=== PATIENT | male | born 1985 | race Caucasian/White ===

== ENCOUNTER 2018-06-29 00:50 | Emergency (ER) | payer MEDICAID, SELFPAY ==
[2018-06-29 00:51] VITALS: BP 132/80; PULSE 69; RESP 15; TEMP 36.6; O2SAT 96
--- NOTE | 2018-06-29 01:18 | ED.VISSUMM ---
- ER Visit Summary Date of Service: 06/29/18 Chief Complaint: Dehydrated History of Present Illness: The patient is an indigent 32 M who presents complaining of feeling dehydrated for 1 day. Patient states he has been outside in the heat because he has no home. He has had decreased p.o. intake, with no meal for 1 day. He has been having 1 day of generalized weakness, abdominal pain, and vomiting ?2 today. He denies fever, chest pain, cough or congestion, shortness of breath, diarrhea, or other complaints. He states he is not urinated since this morning. He denies any medical history, including history of diabetes. He denies taking any medications. He uses tobacco. Physical Examination: Vital signs: afebrile, hemodynamically stable, no hypoxia on room air General: well nourished, well developed, in no distress Skin: warm, dry, no rash, no pallor HEENT: normocephalic and atraumatic; PERRL, EOMI, dry mucous membranes Cardiovascular: regular rate and rhythm without murmurs, no peripheral edema, 2+ pulses all distal extremities Respiratory: No increased work of breathing, lungs are clear to auscultation bilaterally, no rales, rhonchi or wheezing Abdominal: Abdomen is soft, mildly tender in bilateral lower quadrants, right greater than left, with normoactive bowel sounds, no guarding or rebound, no rigidity, no masses MSK: Moves all extremities, no deformities, normal strength Neuro: Awake and alert, oriented ?4. No facial droop, sensation and motor function intact and symmetric Test Results: Abnormal Lab Results 06/29/18 06/29/18 06/29/18 01:25 01:25 02:12 WBC 9.6 RBC 4.57 L Hgb 14.8 Hct 43.7 MCV 95.6 H MCH 32.4 H MCHC 33.9 RDW 12.4 RDW Differential 43.2 Plt Count 254 MPV 10.7 Immature Gran % (Auto) 0.100 Neut % (Auto) 47.5 Lymph % (Auto) 36.4 Amador % (Auto) 7.5 Eos % (Auto) 7.9 H Baso % (Auto) 0.6 Absolute Neuts (auto) 4.6 Absolute Lymphs (auto) 3.50 Total Counted Not Reportable Sodium 143 Potassium 3.5 Chloride 109 H Carbon Dioxide 25.0 Anion Gap 9 BUN 10 Creatinine 1.04 Estim Creat Clear Calc 115.58 Est GFR (MDRD) Af Amer 105 Est GFR (MDRD) Non-Af 87 BUN/Creatinine Ratio 9.6 L Glucose 96 Calcium 8.3 L Total Bilirubin 0.50 AST 18 ALT 26 Alkaline Phosphatase 71 Total Protein 6.7 Albumin 3.3 Globulin 3.4 Albumin/Globulin Ratio 1.0 Lipase 166 Urine Color Yellow Urine Clarity Sl. Cloudy Urine pH 5.0 Ur Specific Mercedes 1.030 Urine Protein 15 H Urine Glucose (UA) Normal Urine Ketones 15 H Urine Occult Blood 10 H Urine Nitrite Negative Urine Bilirubin 1 H Urine Urobilinogen 1 H Ur Leukocyte Esterase 25 H Urine RBC 0 SEEN Urine WBC 0-5 SEEN Ur Squamous Epith Cells 0 SEEN Urine Bacteria 0 SEEN Urine Mucus 4+ Medications Given Discontinued Medications Acetaminophen (Tylenol) 1,000 mg PO X1 ONE Stop: 06/29/18 01:50 Last Admin: 06/29/18 01:56 Dose: 1,000 mg Sodium Chloride () 1,000 mls @ 1,000 mls/hr IV .Q1H ONE Stop: 06/29/18 02:16 Last Admin: 06/29/18 01:26 Dose: 1,000 mls/hr Ondansetron HCl (Zofran) 4 mg IV X1 ONE Stop: 06/29/18 01:18 Last Admin: 06/29/18 01:27 Dose: 4 mg Emergency Department Course and Treatment: Patient is an indigent male who states he has not had much p.o. intake for 24 hours, with weakness and feeling dehydrated after being in the heat for the last day. He states he feels constantly thirsty, and has decreased urine output today. Patient was given IV fluids and Zofran for symptomatic relief. He was also given Tylenol for later complaint of a headache. Labs were checked to look for any electrolyte derangements, renal dysfunction, or glucose abnormalities. Patient had normal glucose, the symptoms are not related to new onset diabetes. No significant electrolyte derangements. Patient's urine was concentrated and positive for mild ketones, consistent with dehydration and poor p.o. intake. Patient was allowed to rest. After IV fluids and medications, he felt better. He was given a po challenge. He was discharged in improved condition and encouraged to drink plenty of fluids. Treatment Plan: [] Disposition: [] Impression: Mild dehydration This note was generated with [employer] dictation software. It may contain incorrect words, spelling, and punctuation that were not noted in review of the chart prior to signing ED Disposition - Plan for ED Patient: Chief Complaint: Nausea/Vomiting Referrals: Care Physician,No Primary [Primary Care Provider] -
[2018-06-29] MEDS: 0.9% Normal Saline 1,000 ML 1000 ML IV (01:26)
[2018-06-29] MEDS: Ondansetron 4 MG/2 ML Vial IV (01:27)
[2018-06-29 01:33] LABS: Absolute Neutrophil Count 4.6 X10^3/uL (2.0-7.7); Basophil# 0.06 X10^3/uL; Basophil% 0.6 % (0-1); Eosinophil# 0.76 X10^3/uL; Eosinophils% 7.9 % (0-5); Hematocrit 43.7 % (40-54); Hemoglobin 14.8 g/dl (13.0-16.5); Lymphocyte % 36.4 % (19-41); Mean Corp Hgb Conc 33.9 g/gl (32-36); Mean Corpuscular Hgb 32.4 pg (27.0-32.0); Mean Corpuscular Volume 95.6 fL (80-94); Mean Platelet Vol. 10.7 fl (6.2-12.0); Monocyte# 0.72 X10^3/uL; Monocyte% 7.5 % (0-10); Neutrophil # 4.56 X10^3/uL (2.7-7.7); Neutrophil % 47.5 % (47-70); Platelet Count 254 K/mm3 (150-450); RBC Distribution Width CV 12.4 % (11.6-14.6); RBC Distribution Width SD 43.2 fl (35.1-43.9); Red Blood Count 4.57 M/mm3 (4.6-6.2); White Blood Count 9.6 K/mm3 (4.4-11.0)
[2018-06-29 01:36] LABS: POSITIVE COUNT NO; POSITIVE DIFFERENTIAL NO; POSITIVE MORPHOLOGY NO
[2018-06-29 01:53] LABS: AST(SGOT) 18 U/L (15-37); Alanine Aminotransfer ALT/SGPT 26 U/L (16-61); Albumin, Serum 3.3 g/dL (3.2-5.0); Alkaline Phosphatase 71 U/L (45-117); Anion Gap 9 (5-15); BUN 10 mg/dL (7-18); BUN/Creat Ratio 9.6 RATIO (10-20); Calcium,Total 8.3 mg/dL (8.5-10.1); Chloride 109 mmol/L (98-107); Creatinine, Serum 1.04 mg/dL (0.70-1.30); EST Glomerular Filtration Rate 87 mL/min (>60); Est Glom Filt Rate - Afr Amer 105 mL/min (>60); Estimated Creatinine Clearance 115.58 ml/min; Globulin 3.4 g/dL (2.2-4.2); Glucose 96 mg/dL (74-106); Lipase 166 U/L (73-393); Potassium 3.5 mmol/L (3.5-5.1); Protein, Total 6.7 g/dL (6.4-8.2); Sodium Level 143 mmol/L (136-145)
[2018-06-29] MEDS: Acetaminophen 500 MG Tablet 1000 MG PO (01:56)
[2018-06-29 02:19] LABS: Bacteria 0 SEEN /hpf (None Seen); Red Blood Cells-Urine 0 SEEN /hpf (0-5); Squamous Epithelial Cells - UA 0 SEEN /hpf (0-5)
[2018-06-29 02:21] LABS: Color, Urine Yellow (Yellow); Glucose, Dipstick Normal (Normal); Ketone-Dipstick 15 mg/dl (Negative); Leukocyte Esterase-Dipstick 25 /ul (Negative); Nitrite-Dipstick Negative (Negative); Occult Blood-Urine 10 /ul (Negative); Protein-Dipstick 15 mg/dl (Negative); Urine Clarity Sl. Cloudy (Clear); Urine Urobilinogen 1 mg/dl (Normal)
[2018-06-29 02:31] LABS: Urine Bilirubin Dipstick 1 mg/dL (Negative)
[2018-06-29 02:33] LABS: Mucous, Urine 4+ /hpf (<or=2+); White Blood Cells 0-5 SEEN /hpf (0-5)
--- NOTE | 2018-06-29 04:11 | ED.DEP ---
ED Disposition - Plan for ED Patient: Disposition: Home or Assisted Living Chief Complaint: Nausea/Vomiting Instructions: ED Dehydration Referrals: Care Physician,No Primary [Primary Care Provider] - Anita Dobson MD [STAFF PHYSICIAN] - 3-5 Days if not improving Additional Instructions: Please drink plenty of fluids to stay hydrated. If it is hot outside, please seek shade or a cool spot to help prevent heat-related illness. If you have any worsening of your condition or any new concerning symptoms, please return immediately to the emergency department for another evaluation.
[2018-06-29 05:37] VITALS: BP 98/54; PULSE 62; RESP 16; O2SAT 99
[2018-06-29 05:38] VITALS: BP 98/54; PULSE 62; RESP 16; O2SAT 99
== END 2018-06-29 05:38 | disposition home or self-care (01) ==
PROVIDERS: Emergency Provider Emergency Medicine
DX: E86.0 Dehydration (principal); Z59.0 Homelessness; Z72.0 Tobacco use
CPT/HCPCS: 80053; 81001; 83690; 85025; 96361; 96374; 99283; J7030; J2405

== ENCOUNTER 2022-10-15 02:18 | Emergency (ER) | payer MEDICAID, SELFPAY ==
[2022-10-15 02:19] VITALS: BP 127/84; PULSE 92; RESP 18; TEMP 35.6; O2SAT 98; BMI 27.9
[2022-10-15 02:56] LABS: Color, Urine Yellow (Yellow); Glucose, Dipstick Normal (Normal); Ketone-Dipstick 50 mg/dl (Negative); Leukocyte Esterase-Dipstick 25 /ul (Negative); Nitrite-Dipstick Negative (Negative); Occult Blood-Urine 10 /ul (Negative); Protein-Dipstick 30 mg/dl (Negative); Specific Gravity, Urine 1.025 (1.002-1.030); Urine Clarity Clear (Clear); Urine Urobilinogen 1 mg/dl (Normal)
[2022-10-15 03:13] LABS: Bacteria 2+ /hpf (None Seen); Hyaline Cast 25-50 SEEN /lpf (0-5); Mucous, Urine 2+ /hpf (<or=2+); Red Blood Cells-Urine 0-5 SEEN /hpf (0-5); Squamous Epithelial Cells - UA 0-5 SEEN /hpf (0-5); Urine Bilirubin Dipstick 1 mg/dL (Negative); White Blood Cells 0-5 SEEN /hpf (0-5)
--- NOTE | 2022-10-15 03:19 | EX.ED.DYSGE1 ---
HPI History of Present Illness Chief Complaint: General Illness Informant: patient Narrative Narrative: Since states he walked from [place] headed to [place], he states he made it to [facility] where gave him a ride here to [place] and he walked into the ED, staff was not aware that police brought him since they did not come in. He states he was headed here because he has some family in this area and he was tired of his living conditions in [place]. He states when police picked him up, he was freezing and feeling very cold all over, and he was having cramping in his legs, mostly his hamstrings and his popliteal areas/proximal calves. He feels dehydrated. States he has not been drinking a lot of fluids today but denies any other recent illness. Has history of schizophrenia but does not take medications, for the voices. He denies any suicidality or homicidality, he states he would like to just warm up and get some fluids and hopefully that will help his legs. When asked if he did not come here what he would be doing right now, he states waiting on wound for my baby's mama. [facility] Medical History Schizophrenia Home Medications NK 06/29/18 [History Last Taken Unknown] Allergy/AdvReac Type Severity Reaction Status Date / Time Penicillins Allergy Unknown Verified 10/15/22 02:31 Surgical History no surgical history Social History Smoking Status: Current every day smoker tobacco type: cigarettes ROS ROS ED Constitutional Constitutional ED: Denies chills or fever(s) Eyes Eyes: Denies change in vision or diplopia ENT ENT ED: Denies rhinorrhea or sore throat Cardiovascular Cardiovascular: Denies chest pain or palpitations Respiratory/Chest Respiratory/Chest: Denies cough or dyspnea Gastrointestinal Gastrointestinal: Denies abdominal pain, diarrhea, nausea or vomiting Genitourinary Genitourinary ED: Denies dysuria or hematuria Musculoskeletal Musculoskeletal: Reports as per HPI, extremity pain and muscle cramps; Denies back pain or neck pain Integumentary Denies abscess or rash Neurologic Neurologic: Denies headache(s), paresthesias or weakness Psychiatric Psychiatric: Denies anxiety or suicidal thoughts EXAM Physical Exam Const Vital Signs: 12/13/22 02:19 10/15/22 02:22 Temperature 96.1 F L Temperature Source Temporal Pulse Rate 92 Respiratory Rate 18 Respiratory Effort Normal Non-Labored Respiratory Pattern Normal Blood Pressure 127/84 H Blood Pressure Mean 98 Pulse Ox 98 Oxygen Delivery Method Room Air Positive well nourished, well developed and unkempt Constitutional Narrative: Well-appearing, pleasant, cooperative General Appearance ED: unkempt, well developed and NAD HEENT Reports moist mucous membranes normocephalic and atraumatic Eyes PERRL and EOMs intact bilaterally Neck full ROM and supple Resp normal respiratory effort and clear to auscultation bilaterally Cardio regular rate, regular rhythm and no murmurs Rate: Negative for tachycardic GI non-tender and non-distended Auscultation: normoactive bowel sounds Palpation: soft Back/Spine no CVA tenderness General Back: other FROM Extremity normal to inspection Extremity Narrative: Mildly tender hamstrings bilaterally. All compartments soft and nondistended. Full range of motion. Able to walk without difficulty, mildly antalgic. General Extremety ED: Yes tenderness; Negative for edema or pulses abnormal General Extremity: Negative for edema or pulses abnormal Neuro oriented x3, CN's II-XII intact bilaterally and no sensory deficits noted Sensorium / Orientation: awake and alert Motor Exam: strength 5/5 throughout Psych mental status grossly normal Psych Narrative: No objective delusions or actively hallucinating. No suicidal or homicidal ideation. Appearance: unkempt Skin no rashes or lesions noted and no wounds MDM MDM MDM Narrative Medical decision making narrative: Patient was warmed up with blankets passively, and given water to drink. I do not think he needs an IV. I did a urinalysis since he had to urinate, it was a bit concentrated and showed a trace amount of blood, so to rule out rhabdomyolysis, I performed a CPK. It is slightly abnormal, but not enough to be consistent with rhabdomyolysis. I am not concerned by compartment syndrome clinically, he is in relatively mild pain and having muscle cramping. He will be discharged. Lab Data Attestation: I reviewed the patient's lab results. Labs: Laboratory Results - last 24 hr 10/15/22 10/15/22 02:50 03:30 Total Creatine Kinase 415 H Urine Color Yellow Urine Clarity Clear Urine pH 5.0 Ur Specific [place] 1.025 Urine Protein 30 H Urine Glucose (UA) Normal Urine Ketones 50 H Urine Occult Blood 10 H Urine Nitrite Negative Urine Bilirubin 1 H Urine Urobilinogen 1 H Ur Leukocyte Esterase 25 H Urine RBC 0-5 SEEN Urine WBC 0-5 SEEN Ur Squamous Epith Cells 0-5 SEEN Other Crystals SEE COMMENT Urine Bacteria 2+ Hyaline Casts 25-50 SEEN Urine Mucus 2+ Discharge Plan Triage Chief Complaint: General Illness ED Provider: Charly Forrest Dx/Rx/DC Orders Clinical Impression: Mild dehydration, Muscle cramping Instructions: ED Dehydration (Adult) Prescriptions: No Action NK Primary Care Provider: Care Physician,No Primary Referrals: Lizzy Marmolejo [Non-Staff] - As Needed Care Physician,No Primary [Primary Care Provider] - Disposition Disposition: Home, Self Care
[2022-10-15 03:50] LABS: CPK Total, Creatine Kinase 415 U/L (39-308)
[2022-10-15 04:39] VITALS: TEMP 36.3
== END 2022-10-15 06:06 | disposition home or self-care (01) ==
PROVIDERS: Emergency Provider Emergency Medicine; Visit Provider Emergency Medicine
DX: E86.0 Dehydration (principal); F17.210 Nicotine dependence, cigarettes, uncomplicated; R25.2 Cramp and spasm
CPT/HCPCS: 36415; 81001; 82550; 99283

== ENCOUNTER 2023-05-18 03:25 | Emergency (ER) | payer MEDICAID, SELFPAY ==
[2023-05-18 03:26] VITALS: BP 130/78; PULSE 74; RESP 16; TEMP 35.9; O2SAT 99; BMI 28.8
--- NOTE | 2023-05-18 03:43 | EX.ED.DYSGE1 ---
HPI History of Present Illness Chief Complaint: General Illness [facility] Medical History Schizophrenia Home Medications NK 06/29/18 [History Last Taken Unknown] Allergy/AdvReac Type Severity Reaction Status Date / Time Penicillins Allergy Unknown Verified 10/15/22 02:31 Social History Smoking Status: Current every day smoker tobacco type: cigarettes EXAM Physical Exam Const Vital Signs: 05/18/23 03:26 05/18/23 03:28 Temperature 96.6 F L Temperature Source Temporal Pulse Rate 74 Respiratory Rate 16 Respiratory Effort Normal Non-Labored Respiratory Pattern Normal Blood Pressure 130/78 H Blood Pressure Mean 95 Pulse Ox 99 Oxygen Delivery Method Room Air MDM MDM MDM Narrative Medical decision making narrative: HISTORY OF PRESENT ILLNESS: 37-year-old male here with bilateral foot pain thinks may be dehydrated. Patient denies nausea vomiting. States 3 to 4 months of bilateral foot pain worse with walking. Denies any recent trauma. Denies any loss of sensation. Patient denies active cancer, being bedridden for greater than 3 days, denies unilateral leg swelling, denies any varicose veins, denies any calf tenderness, denies any edema. Denies major surgery within 12 weeks, recent paralysis, previous DVT. REVIEW OF SYSTEMS: Pertinent positives: [] Pertinent negatives: [] PHYSICAL EXAM: Nursing triage notes reviewed, Vital signs reviewed Constitutional: please see mdm HENT: MMM Eyes: Pupils equal round and reactive to light, Extraocular muscles intact Neck: No stridor, no JVD, full neck ROM Lungs: Clear to auscultation, No wheezing or rales. No increased work of breathing, no conversational dyspnea, no accessory muscle use, no nasal flaring. No respiratory distress noted Heart: Regular rate and rhythm, No murmurs, No rubs and No gallops, 2+ distal pulses (radial, femoral, posterior tibial) in all extremities Abdomen: Soft, there is no tenderness, rigidity, rebound or guarding, no obvious peritoneal signs, no palpable pulsatile abdominal masses, no auscultated abdominal bruit : No CVAT Extremities: No edema Neuro: Intact sensation L1-S1 dermatomal distributions. Intact 5/5 strength in hip flexion (T12-L3). Knee extension (L2-L4). Ankle dorsiflexion (L4-L5). Ankle plantar flexion (S1). Great toe extension (L5). 2+ patellar and Achilles DTRs. Skin: No rash or lesions noted MEDICAL DECISION MAKING: Chief Complaint: Bilateral foot External records reviewed: No recent imaging of the patient's feet Factors affecting care: None Social determinants of health: Undomiciled History obtained from others: none MDM Narrative: Patient was hemodynamically stable, afebrile, nontoxic-appearing. Bilateral foot exam without evidence of deformity, redness, crepitus, fluctuance, bilateral lower extremities warm well perfused. There is no edema. Exam was unremarkable. Patient hemodynamically stable. He had moist mucous membranes. No signs of necrotizing fasciitis, arterial occlusion, DVT, fracture dislocation. No indication for advanced imaging. No occasion for IV or labs at this time. Patient was able to tolerate p.o. here he is appropriate discharge home with close outpatient PCP follow-up. A list of homeless shelters were given to the patient The patient and/or family, caregivers express understanding. The patient and/or family, caregivers agrees with the plan. Total critical care time today provided was at least 0 minutes. This excludes separately billable procedures. Critical care time (if documented) is secondary to the patient having high probability of clinically significant/life threatening deterioration in the patient's condition which required my urgent intervention. Shared decision making: I will have a discussion with the patient and or visitors regarding risk/benefits of further testing or admission. They will be made aware of of the risk/benefits inherent in this decision they will be given the opportunity to voice understanding. Discharge Plan Triage Chief Complaint: General Illness ED Provider: Lul Bailey Dx/Rx/DC Orders Prescriptions: No Action NK Primary Care Provider: Care Physician,No Primary Referrals: Care Physician,No Primary [Primary Care Provider] -
== END 2023-05-18 04:21 | disposition home or self-care (01) ==
PROVIDERS: Emergency Provider Emergency Medicine; Visit Provider Emergency Medicine
DX: M79.672 Pain in left foot (principal); F17.210 Nicotine dependence, cigarettes, uncomplicated; M79.671 Pain in right foot
CPT/HCPCS: 99283

== ENCOUNTER 2023-09-11 21:13 | Emergency (ER) | payer MEDICAID, SELFPAY ==
[2023-09-11 21:14] VITALS: BP 140/84; PULSE 87; RESP 16; TEMP 35.8; O2SAT 98; BMI 28.5
--- NOTE | 2023-09-11 23:31 | EX.ED.VIS.PS ---
HPI HPI - Psych History of Present Illness Chief Complaint: Other, Pain/Inj Narrative Narrative: 38-year-old male presenting with concern for hearing voices. He states that this is a new issue. He is unclear on what the voices are telling him to do. Patient states that he noticed them at home tonight. He is concerned that he might be diabetic because his blood sugar could be high or low. Patient denies alcohol or drug abuse except for marijuana use. Denies mental health history. Patient does state that an ear nose throat doctor implanted something into his heart to monitor him. He is not sure when this occurred. He is concerned that this is where he hears the voices from. [facility] Medical History Schizophrenia Home Medications NK 06/29/18 [History Last Taken Unknown] Allergy/AdvReac Type Severity Reaction Status Date / Time Penicillins Allergy Unknown Verified 09/11/23 23:31 Social History Smoking Status: Current every day smoker tobacco type: cigarettes ROS ROS ED Constitutional Constitutional ED: Denies chills, fever(s) or sweats Eyes Eyes: Denies blurry vision or change in vision ENT ENT ED: Denies ear pain or sore throat Cardiovascular Cardiovascular: Denies chest pain, palpitations or racing heartbeat Respiratory/Chest Respiratory/Chest: Denies cough, dyspnea or sputum Gastrointestinal Gastrointestinal: Denies abdominal pain, constipation, diarrhea, nausea or vomiting Genitourinary Genitourinary ED: Denies dysuria, hematuria or urinary frequency Musculoskeletal Musculoskeletal: Denies arthralgias, myalgias or neck pain Integumentary Denies abscess, Abrasions or rash Neurologic Neurologic: Denies headache(s), paresthesias or weakness Psychiatric Psychiatric: Denies anxiety, depression, suicidal ideation or suicidal thoughts Endocrine Endocrinology: Denies polydipsia or polyuria EXAM Physical Exam Const Vital Signs: 09/11/23 21:14 Temperature 96.5 F L Temperature Source Temporal Pulse Rate 87 Respiratory Rate 16 Blood Pressure 140/84 H Blood Pressure Mean 102 Pulse Ox 98 Oxygen Delivery Method Room Air Positive well nourished General Appearance ED: Negative for pallor HEENT Reports moist mucous membranes normocephalic and atraumatic Eyes PERRL and EOMs intact bilaterally Neuro oriented x3 and CN's II-XII intact bilaterally Psych cooperative, denies homicidal ideation and denies suicidal ideation Appearance: grossly normal Attitude: calm Activity / Motor Behavior: appropriate eye contact Thought Process: disorganized and tangential Thought Content: No suicidality, No homicidality and hallucination(s) Positive for auditory Insight: limited Skin General Skin Exam: Negative for pallor MDM MDM MDM Narrative Medical decision making narrative: Patient presenting with hearing voices and hallucinations. Although he denies this the medical record shows he has a history of schizophrenia. Patient has not homicidal or suicidal at this time. I did obtain screening lab work which shows normal white blood cell count, hemoglobin, renal function, liver function. Urine drug screen is positive for MDMA and ecstasy. Patient was concerned that his glucose was high or low and appears to be 139. No anion gap. Electrolytes are normal. I did have the patient speak with crisis and they feel comfortable sending the patient home as is not homicidal or suicidal. He has a history of hallucinations but he is safe from medical standpoint. Return precautions were discussed. Impression: 1. History of schizophrenia Lab Data Labs: Laboratory Results - last 24 hr 09/11/23 09/12/23 23:45 00:12 WBC 8.7 RBC 4.55 L Hgb 14.8 Hct 44.5 MCV 97.8 H MCH 32.5 H MCHC 33.3 RDW Std Deviation 46.4 H RDW Coeff of Wm 13.1 Plt Count 366 MPV 9.8 Immature Gran % (Auto) 0.900 Neut % (Auto) 43.7 L Lymph % (Auto) 34.2 Russell % (Auto) 10.2 H Eos % (Auto) 9.7 H Baso % (Auto) 1.3 H Absolute Neuts (auto) 3.8 Absolute Lymphs (auto) 2.99 Nucleated RBC % 0 Sodium 140 Potassium 3.7 Chloride 108 H Carbon Dioxide 29.0 Anion Gap 3 L BUN 17 Creatinine 0.99 Estim Creat Clear Calc 105.64 Est GFR (MDRD) Af Amer 108 Est GFR (MDRD) Non-Af 89 BUN/Creatinine Ratio 17.2 Glucose 139 H Calcium 8.6 Total Bilirubin 0.10 L AST 21 ALT 34 Alkaline Phosphatase 78 Total Protein 6.4 Albumin 3.1 L Globulin 3.3 Albumin/Globulin Ratio 0.9 Urine Opiates Screen NEGATIVE Urine Methadone Screen NEGATIVE Ur Barbiturates Screen NEGATIVE Ur Phencyclidine Scrn NEGATIVE Ur Amphetamines Screen POSITIVE H MDMA (Ecstasy) Screen POSITIVE H U Benzodiazepines Scrn NEGATIVE Urine Cocaine Screen NEGATIVE U Cannabinoids Screen NEGATIVE Ur Drug Screen Comment Ethyl Alcohol < 3.0 Discharge Plan Triage Chief Complaint: Other, Pain/Inj ED Provider: Maciej Bay Dx/Rx/DC Orders Prescriptions: No Action NK Primary Care Provider: Care Physician,No Primary Referrals: Care Physician,No Primary [Primary Care Provider] -
[2023-09-12 00:21] LABS: ALB/GLOB Ratio 0.9 RATIO (0.9-2.4); AST(SGOT) 21 U/L (15-37); Absolute Lymphocyte Count 2.99 X10^3/uL (0.83-4.51); Absolute Neutrophil Count 3.8 X10^3/uL (2.0-7.7); Alanine Aminotransfer ALT/SGPT 34 U/L (16-61); Albumin, Serum 3.1 g/dL (3.2-5.0); Alkaline Phosphatase 78 U/L (45-117); Anion Gap 3 (5-15); BUN 17 mg/dL (7-18); BUN/Creat Ratio 17.2 RATIO (10-20); Basophil# 0.11 X10^3/uL; Basophil% 1.3 % (0-1); Calcium,Total 8.6 mg/dL (8.5-10.1); Chloride 108 mmol/L (98-107); Creatinine, Serum 0.99 mg/dL (0.70-1.30); EST Glomerular Filtration Rate 89 mL/min (>60); Eosinophil# 0.85 X10^3/uL; Eosinophils% 9.7 % (0-5); Est Glom Filt Rate - Afr Amer 108 mL/min (>60); Estimated Creatinine Clearance 105.64 ml/min; Globulin 3.3 g/dL (2.2-4.2); Glucose 139 mg/dL (74-106); Hematocrit 44.5 % (40-54); Hemoglobin 14.8 g/dL (13.0-16.5); Lymphocyte # 2.99 X10^3/ul (0.83-4.51); Lymphocyte % 34.2 % (19-41); Mean Corp Hgb Conc 33.3 g/dL (32-36); Mean Corpuscular Hgb 32.5 pg (27.0-32.0); Mean Corpuscular Volume 97.8 fL (80-94); Mean Platelet Vol. 9.8 fl (6.2-12.0); Monocyte# 0.89 X10^3/uL; Monocyte% 10.2 % (0-10); NRBC Flagged by Analyzer 0 % (0-5); Neutrophil # 3.82 X10^3/uL (2.7-7.7); Neutrophil % 43.7 % (47-70); Platelet Count 366 K/mm3 (150-450); Potassium 3.7 mmol/L (3.5-5.1); Protein, Total 6.4 g/dL (6.4-8.2); RBC Distribution Width CV 13.1 % (11.6-14.6); RBC Distribution Width SD 46.4 fl (35.1-43.9); Red Blood Count 4.55 M/mm3 (4.6-6.2); Sodium Level 140 mmol/L (136-145); White Blood Count 8.7 K/mm3 (4.4-11.0)
[2023-09-12 00:25] LABS: Alcohol, Blood (Medical)-Serum < 3.0 mg/dL
[2023-09-12 00:43] LABS: Amphetamine Urine VISTA POSITIVE (<1000 ng/mL); Barbiturate Urine VISTA NEGATIVE (< 200 ng/mL); Benzodiazepine Urine VISTA NEGATIVE (< 200 ng/mL); Cocaine Urine VISTA NEGATIVE (< 300 ng/mL); Ecstacy Urine VISTA POSITIVE (< 500 ng/mL); Methadone Urine VISTA NEGATIVE (< 300 ng/mL); PCP Urine VISTA NEGATIVE (< 25 ng/mL); THC Urine VISTA NEGATIVE (< 50 ng/mL); Vista UDS pH Range 5
== END 2023-09-12 04:24 | disposition home or self-care (01) ==
PROVIDERS: Emergency Provider Student in an Organized Health Care Education/Training Program; Visit Provider Student in an Organized Health Care Education/Training Program
DX: F20.9 Schizophrenia, unspecified (principal); F17.210 Nicotine dependence, cigarettes, uncomplicated
CPT/HCPCS: 36415; 80053; 80307; 82077; 85025; 99282

== ENCOUNTER 2023-09-18 19:00 | Emergency (ER) | payer MEDICAID, SELFPAY ==
[2023-09-18 19:00] VITALS: BP 104/63; PULSE 80; RESP 16; TEMP 36.4; O2SAT 99; BMI 27.6
[2023-09-18 20:48] LABS: Absolute Lymphocyte Count 3.51 X10^3/uL (0.83-4.51); Absolute Neutrophil Count 4.7 X10^3/uL (2.0-7.7); Basophil# 0.15 X10^3/uL; Basophil% 1.5 % (0-1); Eosinophils% 7.8 % (0-5); Hematocrit 45.1 % (40-54); Hemoglobin 14.8 g/dL (13.0-16.5); Lymphocyte # 3.51 X10^3/ul (0.83-4.51); Lymphocyte % 34.2 % (19-41); Mean Corp Hgb Conc 32.8 g/dL (32-36); Mean Corpuscular Hgb 32.3 pg (27.0-32.0); Mean Corpuscular Volume 98.5 fL (80-94); Mean Platelet Vol. 9.5 fl (6.2-12.0); Monocyte% 10.7 % (0-10); NRBC Flagged by Analyzer 0 % (0-5); Neutrophil # 4.66 X10^3/uL (2.7-7.7); Neutrophil % 45.4 % (47-70); Platelet Count 384 K/mm3 (150-450); Red Blood Count 4.58 M/mm3 (4.6-6.2); White Blood Count 10.3 K/mm3 (4.4-11.0)
[2023-09-18 21:01] LABS: Alcohol, Blood (Medical)-Serum < 3.0 mg/dL
[2023-09-18 21:03] LABS: Anion Gap 4 (5-15); BUN 17 mg/dL (7-18); BUN/Creat Ratio 14.8 RATIO (10-20); Calcium,Total 8.7 mg/dL (8.5-10.1); Chloride 107 mmol/L (98-107); Creatinine, Serum 1.15 mg/dL (0.70-1.30); EST Glomerular Filtration Rate 75 mL/min (>60); Est Glom Filt Rate - Afr Amer 91 mL/min (>60); Estimated Creatinine Clearance 88.16 ml/min; Glucose 126 mg/dL (74-106); Potassium 4.1 mmol/L (3.5-5.1); Sodium Level 141 mmol/L (136-145)
[2023-09-18 21:07] LABS: Amphetamine Urine VISTA POSITIVE (<1000 ng/mL); Barbiturate Urine VISTA NEGATIVE (< 200 ng/mL); Benzodiazepine Urine VISTA NEGATIVE (< 200 ng/mL); Cocaine Urine VISTA NEGATIVE (< 300 ng/mL); Ecstacy Urine VISTA NEGATIVE (< 500 ng/mL); Methadone Urine VISTA NEGATIVE (< 300 ng/mL); PCP Urine VISTA NEGATIVE (< 25 ng/mL); THC Urine VISTA NEGATIVE (< 50 ng/mL); Vista UDS pH Range 6
[2023-09-18 23:00] VITALS: RESP 18; O2SAT 100
[2023-09-19 01:01] LABS: AST(SGOT) 24 U/L (15-37); Alanine Aminotransfer ALT/SGPT 40 U/L (16-61); Albumin, Serum 3.3 g/dL (3.2-5.0); Alkaline Phosphatase 80 U/L (45-117); Bilirubin, Direct 0.06 mg/dL (0.00-0.30); Globulin 3.5 g/dL (2.2-4.2); Protein, Total 6.8 g/dL (6.4-8.2)
[2023-09-19 01:34] VITALS: RESP 18
[2023-09-19 03:36] VITALS: PULSE 77; RESP 16; O2SAT 99
--- NOTE | 2023-09-19 04:17 | EDS_ITS ---
HPI History of Present Illness Chief Complaint: Mental Health Informant: patient Narrative Narrative: Patient is a 38-year-old male with longstanding history of schizophrenia and illicit drug use. He states he has not been taking his medications for almost 1 year. He reports he has daily auditory and visual hallucinations. He states that the hallucinations are disrupting his life. He states that he is trying to get to [place] so he can be with his mother who can then help him get into his counselor/psychiatrist and begin taking medication once again. He states he has not been able to do that and because of the recurrent hallucinations comes in for evaluation. Patient adamantly denies homicidal or suicidal ideation however [facility] Medical History Schizophrenia Home Medications NK 06/29/18 [History Last Taken Unknown] Allergy/AdvReac Type Severity Reaction Status Date / Time Penicillins Allergy Unknown Verified 09/18/23 23:22 Social History Smoking Status: Current every day smoker tobacco type: cigarettes ROS ROS ED Constitutional Constitutional ED: Denies chills or fever(s) Eyes Eyes: Denies change in vision ENT ENT ED: Denies sore throat Cardiovascular Cardiovascular: Denies chest pain, palpitations or racing heartbeat Respiratory/Chest Respiratory/Chest: Denies cough or dyspnea Gastrointestinal Gastrointestinal: Denies abdominal pain, diarrhea, nausea or vomiting Genitourinary Genitourinary ED: Denies dysuria Musculoskeletal Musculoskeletal: Denies myalgias Integumentary Denies rash Neurologic Neurologic: Denies headache(s) Psychiatric Psychiatric: Reports other Details: Positive auditory and visual hallucinations ; Denies suicidal ideation or suicidal thoughts Hematologic/Lymphatic Hematologic/Lymphatic: Denies easy bleeding or easy bruising EXAM Physical Exam Const Vital Signs: 09/19/23 01:34 09/19/23 03:36 09/19/23 04:32 Pulse Rate 77 77 Respiratory Rate 18 16 18 Blood Pressure 109/65 Blood Pressure Mean 79 Pulse Ox 99 98 Oxygen Delivery Method Room Air Positive well nourished, well developed and unkempt General Appearance ED: unkempt and well developed; Negative for pallor HEENT HEENT Narrative: Normocephalic atraumatic Eyes PERRL and EOMs intact bilaterally General Eye ED: Negative for scleral icterus Neck supple Neck Narrative: No nuchal rigidity or meningeal signs noted Resp normal respiratory effort and clear to auscultation bilaterally Cardio regular rate and regular rhythm GI normal to inspection, nondistended, normoactive bowel sounds, non-tender, non- distended and no masses Auscultation: normoactive bowel sounds Palpation: soft Extremity normal to inspection Neuro oriented x3, CN's II-XII intact bilaterally and no sensory deficits noted Sensorium / Orientation: alert Motor Exam: strength 5/5 throughout Psych Psych Narrative: No homicidal or suicidal ideation reported Appearance: unkempt Skin no rashes or lesions noted General Skin Exam: Negative for jaundice or pallor MDM MDM MDM Narrative Medical decision making narrative: Patient presented to the ER with stable vitals and reported a known history of schizophrenia as well as longstanding auditory and visual hallucination. He is also been off his medication. He denies any homicidal or suicidal ideation but chart review reveals he has been to the ER multiple times recently secondary to his schizophrenia. As differential diagnosis is for schizophrenia exacerbation versus medication noncompliance and as there is potential need for placement based on his recurrent ER visits I did elect to perform a psychiatric work-up with crisis center consult. Labs revealed no clinically significant findings as patient's had a longstanding history of auditory visual loose Nations there is no need for head CT. Patient was evaluated by crisis center and they agree that this is medication noncompliance and that he is not a threat to himself or others and therefore recommend outpatient follow-up and secondary to this patient was discharged. History & Record Review Discussion w/independent historian: Patient Lab Data Attestation: I reviewed the patient's lab results. Labs: Laboratory Results - last 24 hr 09/18/23 20:33 Total Bilirubin 0.20 Direct Bilirubin 0.06 AST 24 ALT 40 Alkaline Phosphatase 80 Total Protein 6.8 Albumin 3.3 Globulin 3.5 Discharge Plan Triage Chief Complaint: Mental Health ED Provider: Damion Sadler Dx/Rx/DC Orders Clinical Impression: Schizophrenia, Noncompliance with medications Instructions: Understanding Schizophrenia, Using Antipsychotics-Giving Support, ED Schizophrenia, General Prescriptions: No Action NK Primary Care Provider: Care Physician,No Primary Referrals: Care Physician,No Primary [Primary Care Provider] - Activity Restrictions/Additional Instructions: Please follow-up with your outpatient counseling service and discuss restarting your psychiatric medications and return to the ER should you have any further concerns Disposition Disposition: Home, Self Care Discharge Date/Time: 09/19/23 04:33
[2023-09-19 04:32] VITALS: BP 109/65; PULSE 77; RESP 18; O2SAT 98
== END 2023-09-19 04:33 | disposition home or self-care (01) ==
PROVIDERS: Emergency Medicine; Emergency Provider Emergency Medicine; Visit Provider Emergency Medicine
DX: F20.9 Schizophrenia, unspecified (principal); F17.210 Nicotine dependence, cigarettes, uncomplicated; Z91.148 Patient's other noncompliance with medication regimen for other reason
CPT/HCPCS: 80048; 80076; 80307; 82077; 85025; 87811; 99282